=== PATIENT | female | born 1980 | race Hispanic/Latino ===

== ENCOUNTER 2017-10-18 12:08 | Emergency (ER) | payer OTHER ==
[~2017-10-18] VITALS: Ht 144.8 cm; Wt 59.0 kg
[~2017-10-18 12:08] MED LIST: BACTRIM DS TAB1 EACH PO; BUPROPION HCL100 M3 PO; CYCLOBENZAPRINE10 M1 PO; KETOROLAC TROME10 M1 PO; LATUDA40 M1 PO; LITHIUM CARBON450 M1 PO; NORCO 5-325 TA1 EACH PO; PERCOCET 5-3251 EACH PO; PREDNISOLO15 MG/5 M4 PO; SEASONIQUE 0.11 EACH PO; TRAMADOL HCL50 M1 PO; ZOFRAN ODT4 M1 PO
--- NOTE | 2017-10-18 17:11 | ED HEADACHE COMPLAINT ---
History of Present Illness General Chief Complaint: Headache Stated Complaint: WHITEHEAD X1 WEEK GETTING WORSE Source: patient, old records Exam Limitations: no limitations Vital Signs & Intake/Output Vital Signs & Intake/Output Vital Signs Date Time Temp Pulse Resp B/P B/P Pulse O2 O2 Flow FiO2 Mean Ox Delivery Rate 10/19 2003 98.4 72 18 120/78 100 Room Air 10/18 1857 Room Air 10/18 1620 98.4 80 18 116/83 98 Room Air 10/18 1220 99.1 88 20 109/77 97 Room Air Allergies Coded Allergies: shrimp (Severe, ANAPHYLAXIS 12/27/16) amoxicillin (RASH/HIVES 10/18/17) Reconcile Medications Bupropion HCl (Bupropion HCl Sr) 100 MG TABLET.ER 1 TAB PO QAM ANXIETY ( Reported) Hydrocodone/Acetaminophen (Alden 5-325 Tablet) 5 MG-325 MG TABLET 1-2 TAB PO Q4-6 PRN PRN PAIN Ketorolac Tromethamine 10 MG TABLET 1 TAB PO TID PRN PAIN RECEIVED IM IN ER L-Norgest/E.estradion-E.estrad (Seasonique 0.15-0.03-0.01 Tab) 0.15 MG-30 MCG ( 84)/10 MCG (7) [id number] 1 TAB PO DAILY BCP (Reported) [place] Carbonate ([place] Carbonate ER) 450 MG TABLET.ER 1 TAB PO BID BIPOLAR (Reported) Oxycodone HCl/Acetaminophen (Percocet 5-325 MG Tablet) 5 MG-325 MG TABLET 1 TAB PO BID PRN pain Prednisolone 15 MG/5 ML SOLUTION 10 ML PO QDAY allergic reaction x 3 days Sulfamethoxazole/Trimethoprim (Bactrim Ds Tablet) 800 MG-160 MG TABLET 1 TAB PO BID ABSCESS Triage Note: PT C/O H/A X 1 WEEK. STATES SHE HAS TAKEN MOTRIN AND TYLENOL WITHOUT RELIEF. STARTED ON LUPRON INJECTIONS 9 DAYS AGO AND TEGRETOL 7 DAYS AGO Triage Nurses Notes Reviewed? yes Onset: Abrupt Duration: week(s): (1), constant, waxing and waning Timing: recent history Quality/Severity: moderate Severity Numbers: 8 Head Injury Location: frontal Modifying Factors: Worsens With: other (bright light). Associated Symptoms: denies : No Patient currently breastfeeds: No HPI: 37 year old female with history of endometriosis, depression presents to the ER for evaluation c/l left sided headache x 1 week. has been taking otc medications without improvement. denies history of headaches/migraines. positive photosensitivity. no blurry vision or vision loss. no fever, chills, recent fall head trauma. no neck back or arm pain. no chest pain, shortness of breath. pt recent started lupron inj 9 days ago for endometriosis and tegretol 1 week ago. no rashes to her skin. (Rohan Fuller) Past History Travel History Traveled to [place] past 21 day No Medical History Any Pertinent Medical History? see below for history Neurological: migraine EENT: NONE Cardiovascular: NONE Respiratory: asthma, bronchitis Gastrointestinal: hiatal hernia Hepatic: NONE Renal: NONE Musculoskeletal: NONE Psychiatric: bipolar disease Endocrine: NONE Blood Disorders: NONE Cancer(s): NONE ROAD CONDUCTOR/Reproductive: endometriosis Surgical History Surgical History: non-contributory Psychosocial History What is your primary language Bengali Tobacco Use: Quit >30 days ago ETOH Use: denies use Illicit Drug Use: denies illicit drug use Family History Hx Contributory? No (Rohan Fuller) Review of Systems Review of Systems Constitutional: Reports: see HPI. All Other Systems: Reviewed and Negative Comments Review of systems: See HPI, All other systems negative. Constitutional, no chills no fever, HEENT: no sore throat no congestion Cardiovascular: No chest pain , no palpitation Skin: no rashes, no change in skin Respiratory: No dyspnea no cough no sputum GI: No nausea no vomiting, Muscle skeletal: No joint pain, no back pain, Neurologic: headache Heme/endocrine: No bruising (Rohan Fuller) Physical Exam Physical Exam General Appearance: well developed/nourished, no apparent distress, alert, awake Cranial Nerves: normal hearing, normal speech, PERRL Comments: Well-developed well-nourished person in no acute distress HEENT: Normal EENT exam; PERRL, EOMI, no nystagmus. No papilledema HEAD is atraumatic. moist mucous membranes. Neck: Supple, normal range of motion Back: Full range of motion Cardiovascular: Regular rate and rhythms no murmurs rubs Respiratory: Chest nontender.There were no bony deformities, no asymmetry. No respiratory distress. Patient speaking in full complete sentences. Breath sounds clear to auscultation bilaterally: NO W/R/R Extremity: No edema, full range of motion of extremities, 5 out of 5 strength noted to bilateral upper and lower extremities Neuro: Alert oriented x3, motor sensory normal, cranial nerves II through XII grossly intact. There were no obvious focal neurologic abnormalities. Skin: No appreciable rash on exposed skin, skin is warm and dry. Psych: Mood and affect is normal, memory and judgment is normal. Core Measures Sepsis Present: No Sepsis Focused Exam Completed? No (Alesia PLOANCO,Rohan) Progress Differential Diagnosis: encephalitis, IC mass/tumor, intracranial Hem., meningitis, musculoskeletal pain, subarach. Hem. Plan of Care: Orders Procedure Date/time Status URINE 10/18 1722 Complete Saline Lock 10/19 1719 Active COMPREHENSIVE METABOLIC PANEL 10/19 1719 Complete CBC WITHOUT DIFFERENTIAL 10/19 1719 Complete Current Medications Sig/Mateusz Start time Last Medication Dose Stop Time Status Admin Morphine Sulfate 4 MG ONCE ONE 10/18 1899 CAN (MORPHINE SULFATE) 10/18 1900 Laboratory Tests 10/18/17 1810: Anion Gap 12, Estimated GFR > 60, BUN/Creatinine Ratio 23.3, Glucose 89, Calcium 10.1, Total Bilirubin 0.4, AST 18, ALT 32, Alkaline Phosphatase 73, Total Protein 7.5, Albumin 4.6, Globulin 2.9, Albumin/Globulin Ratio 1.6, CBC w Diff NO MAN DIFF REQ, RBC 4.56, MCV 90.8, MCH 30.1, MCHC 33.2, RDW 12.8, MPV 11.0 H, Gran % 76.0 H, Lymphocytes % 16.9 L, Monocytes % 6.0, Eosinophils % 0.9, Basophils % 0.2, Absolute Granulocytes 6.6 H, Absolute Lymphocytes 1.5, Absolute Monocytes 0.5, Absolute Eosinophils 0.1, Absolute Basophils 0 10/18/17 1744: Urine Test NEGATIVE labs, ct ordered. pt med with iv fluids, zofran, toradol benadryl iv On repeat evaluation patient reports symptoms improved however her headache is still present morphine IM ordered 1950 discussed with the patient all her lab results CAT scan findings. She feels well the patient would like to go home advise close follow-up with her primary care physician Tahir her with prescription for Percocet. Return precautions were discussed at least. Diagnostic Imaging: Viewed by Me: CT Scan. Discussed w/RAD: CT Scan. Radiology Impression: PATIENT: LUCAS DYSON PRESENT AGE: 37 PATIENT ACCOUNT NO: [id number] : 81 LOCATION: [facility] ORDERING PHYSICIAN: Rohan POLANCO SERVICE DATE: 10/18/17 EXAM TYPE: CAT - CT HEAD WO IV CONTRAST EXAMINATION: CT HEAD WITHOUT CONTRAST CLINICAL INFORMATION: Left frontal headaches. COMPARISON: None TECHNIQUE: Contiguous axial imaging was performed from the skull base to vertex without intravenous administration of contrast. DLP: 613.8 mGy-cm FINDINGS: There is no evidence of acute intracranial hemorrhage or territorial infarction. No abnormal mass effect or midline shift is seen. Dunn to white matter differentiation is well preserved. No extra-axial fluid collections are identified. The ventricles are normal in size. There is no abnormal attenuation within the brain parenchyma. The osseous structures and soft tissues are normal. The mastoid air cells and visualized portions of the paranasal sinuses are well aerated. IMPRESSION: No acute intracranial pathology. DICTATED BY: Rony Long MD DATE/TIME DICTATED:10/18/171851 EQUAL OPPORTUNITY OFFICER:LISET DATE/TIME TRANSCRIBED:10/18/171851 CONFIDENTIAL, DO NOT COPY WITHOUT APPROPRIATE AUTHORIZATION. <Electronically signed in Other Vendor System> SIGNED BY: Rony Long MD 10/18/171856 (Rohan Fuller) Departure Departure Time of Disposition: 1957 Disposition: HOME OR SELF CARE Condition: Stable Clinical Impression Primary Impression: Headache Referrals: Luis Brower MD (PCP/Family) Additional Instructions: Follow up with dr brower tomorrow. percocet for your headache- this is a narcotic and will make you drowsy. no driving or drinking alcohol while taking. take your zofran that you have if you have nausea. return with any concerns Departure Forms: Customer Survey General Discharge Information Prescriptions: Current Visit Scripts Oxycodone HCl/Acetaminophen (Percocet 5-325 MG Tablet) 1 TAB PO BID PRN pain #10 TAB (Rohan Fuller) PA/WIRE BRUSHER Co-Sign Statement Statement: ED Attending supervision documentation- [] I saw and evaluated the patient. I have also reviewed all the pertinent lab results and diagnostic results. I agree with the findings and the plan of care as documented in the PA's/WIRE BRUSHER's documentation. [X] I have reviewed the ED Record and agree with the PA's/WIRE BRUSHER's documentation. [] Additions or exceptions (if any) to the PAs/WIRE BRUSHER's note and plan are summarized below: [] (Dasia MAIER,Rony Zhang)
[2017-10-18 18:31] LABS: ABSOLUTE BASOPHIL COUNT 0 /CUMM (0.0-0.2); ABSOLUTE EOSINOPHIL COUNT 0.1 /CUMM (0.0-0.7); ABSOLUTE GRANULOCYTE CT 6.6 /CUMM (1.4-6.5); ABSOLUTE LYMPH COUNT 1.5 /CUMM (1.2-3.4); ABSOLUTE MONOCYTE COUNT 0.5 /CUMM (0.10-0.60); BASOPHIL % 0.2 % (0.0-2.0); EOSINOPHIL % 0.9 % (0-5); HEMATOCRIT 41.4 % (37-47); MEAN CORPUSCULAR HGB 30.1 PG (27.0-31.0); MEAN CORPUSCULAR HGB CONC 33.2 G/DL (33.0-37.0); MEAN CORPUSCULAR VOLUME 90.8 FL (81.0-99.0); PLATELET COUNT 278 /CUMM (130-400); RBC DISTRIBUTION WIDTH 12.8 % (11.5-14.5); RED BLOOD CELL CT 4.56 /CUMM (4.20-5.40); WHITE BLOOD CELL COUNT 8.7 /CUMM (4.8-10.8)
--- NOTE | 2017-10-18 18:57 | CT SCAN REPORT ---
EXAMINATION: CT HEAD WITHOUT CONTRAST CLINICAL INFORMATION: Left frontal headaches. COMPARISON: None TECHNIQUE: Contiguous axial imaging was performed from the skull base to vertex without intravenous administration of contrast. DLP: 613.8 mGy-cm FINDINGS: There is no evidence of acute intracranial hemorrhage or territorial infarction. No abnormal mass effect or midline shift is seen. Dunn to white matter differentiation is well preserved. No extra-axial fluid collections are identified. The ventricles are normal in size. There is no abnormal attenuation within the brain parenchyma. The osseous structures and soft tissues are normal. The mastoid air cells and visualized portions of the paranasal sinuses are well aerated. IMPRESSION: No acute intracranial pathology.
[2017-10-18] MEDS ORDERED: PERCOCET 5-3251 EACH PO (19:59)
[2017-10-18 20:04] VITALS: BP 120/78
--- NOTE | 2017-10-19 12:12 | OP PSYCH INCIDENTAL NOTE ---
OPS Incidental Note Details: Telephone call with the patient. She has been in the emergency room yesterday, October 18 complaining of debilitating headaches. We reviewed the emergency room assessment and the laboratory work performed at that time. The patient has been started on Tegretol when she was last seen by the regular provider, she has been taking only 200 mg of Tegretol daily with a level performed 5 days after taking it daily, of 6.9therapeutic. Coincidentally she was started on Lupron injections almost in the same time as the Tegretol. The patient is saying that she does have migraine headaches but this headaches are very different. Says: "these headaches make me be unable to do anything. I cannot take care of my child, I really do not want to take this medication". We discussed with the patient about the interaction between the Lupron injections and Tegretol, about the potential side effects of interrupting the latter, she agreed to gradually reduce and stop it within 1week. The Lupron's half time is higher than the Tegretol's and it would be easier to taper off of tegretol. Will call back if needed. The patient was informed that she could return to the emergency room if the headaches do not subside/worsen. She was also instructed to go to the emergency room if she starts feeling suicidal,paranoid,unable to sleep. She will follow up with her regular provider, Mrs. Betty Garcia.
== END 2017-10-18 20:17 ==
LOC: ERH 12:08
PROVIDERS: Physician Assistant Medical
DX: R51 Headache (principal)
CPT/HCPCS: 81025; 96374; 96375; J1200; J1885; J2405